=== PATIENT | female | born 1945 | race Caucasian/White ===

== ENCOUNTER → 2017-07-01 | Outpatient (CLI) | payer MEDICARE | END | disposition home or self-care (01) | LOC: RESP 15:34 | PROVIDERS: ATTEND Family Medicine | DX: R00.1 Bradycardia, unspecified (principal) ==

== ENCOUNTER → 2017-08-18 | Outpatient (CLI) | payer MEDICARE | END | disposition home or self-care (01) | LOC: LAB.NP 17:18 | PROVIDERS: ATTEND Family Medicine | DX: R30.0 Dysuria (principal) ==

== ENCOUNTER → 2017-09-03 | Outpatient (CLI) | payer MEDICARE, OTHER ==
--- NOTE | 2017-09-03 16:06 | MRI ---
Study: MRI of the Right Knee. Indication: KNEE PAIN Technique: Multiplanar, multi sequence MRI of the right knee was obtained without intravenous contrast. Comparison: None. FINDINGS: ACL, PCL, and lateral collateral ligament complex intact. Grade 1 MCL sprain with mild bowing and surrounding edema. Subtle free edge and undersurface fraying posterior horn/root and body medial meniscus with 3 mm extrusion of the body. Grade 2-3 chondrosis throughout the medial compartment. Radial free edge tearing body lateral meniscus. Patchy grade 2 chondrosis of the lateral compartment. 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 Subtle tendinosis quadriceps tendon insertion as well as patellar tendon origin and insertion. Patella normally located. Multifocal grade 4 chondral fissuring and surface irregularity noted at the medial patellar facet and apex with patchy subchondral marrow change. Less pronounced grade 2-3 chondrosis inferior margin lateral facet. Mild grade 4 chondral fissuring and subchondral change at the inferior margin medial femoral trochlea. Moderate size knee effusion. Subtle [place] cyst. IMPRESSION: Free edge and undersurface fraying medial meniscus as above. Radial free edge tearing body lateral meniscus. Grade 1 MCL sprain. 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 Moderate size knee effusion. Tibiofibular osteoarthritis. Low-grade quadriceps and patellar tendinosis without tear. Electronically signed by: Christo Gutierrez MD 09/03/2017 4:05 PM CDT
--- NOTE | 2017-09-04 12:48 | MAM ---
EXAM DESCRIPTION: 3D Screening BILATERAL CLINICAL HISTORY: 72 years Female SCREENING no complaints. No family history of breast cancer. Postmenopausal. Taking HRT five or more years ago. Right breast biopsy benign. COMPARISON: 2-D digital screening bilateral studies on July 02 2016 and August 02 2013. Report from prior examination also reviewed. TECHNIQUE: Bilateral CC and MLO projection full-field images, 3-D tomosynthesis digital mammographic technique. Also bilateral synthesized CC/ MLO full-field images. CAD not utilized. FINDINGS: The breast parenchymal density pattern is: Scattered areas of fibroglandular density. No skin thickening or nipple retraction bilateral intramammary lymph nodes. Largest at the 600 clock position in the middle third of the right breast. Bilateral solitary microcalcifications. No focal, stellate mass or density, focal asymmetry , and no suspicious microcalcifications bilaterally. Stable mammograms compared to prior study, taking into account differences in mammographic technique IMPRESSION: BI-RADS CATEGORY: 2 - BENIGN FINDINGS. FOLLOW UP: Routine digital bilateral screening, one year interval from August 2017. Written communication explaining the IMPRESSION and follow-up, will be mailed to the patient and referring health care provider. According to the [employer], yearly mammograms are recommended starting at age 40 and continuing as long as a woman is in good health. Any breast change noted on a breast self-exam should be reported promptly to the patient's healthcare provider. Breast MRI is recommended for women with an approximately 20-25% or greater lifetime risk of breast cancer, including women with a strong family history of breast or ovarian cancer and women who have been treated for Hodgkin's disease. A negative mammographic report should not delay tissue diagnosis in patients with significant clinical history or physical findings. Extremely dense breast tissue limits the sensitivity of digital mammography. Electronically signed by: Randall Shearer MD 09/04/2017 12:47 PM CDT
== END | disposition home or self-care (01) ==
LOC: MRI 07:53
PROVIDERS: ATTEND Family Medicine
DX: Z12.31 Encounter for screening mammogram for malignant neoplasm of breast (principal); M25.561 Pain in right knee; M25.461 Effusion, right knee; M17.11 Unilateral primary osteoarthritis, right knee
CPT/HCPCS: 73721; 77063; G0202

== ENCOUNTER → 2017-09-18 | Outpatient (CLI) | payer OTHER ==
--- NOTE | 2017-09-20 02:39 | RAD ---
Examination: XR PELVIS 1-2 VIEWS dated 09/18/2017 12:00 AM CDT History: HIP PN Comparison: None Technique: Frontal view of the pelvis FINDINGS AND IMPRESSION: Mild degenerative changes of both hips with marginal osteophytosis and joint space loss. No acute fracture or dislocation. Intact pelvic ring. Symmetric SI joints. Electronically signed by: Marek Garcia MD 09/20/2017 2:37 AM CDT
== END | disposition home or self-care (01) ==
LOC: RAD 08:04
PROVIDERS: ATTEND Orthopaedic Surgery
DX: M25.551 Pain in right hip (principal)